=== PATIENT | male | born 1990 ===

== ENCOUNTER 2020-06-18 05:59 | Day surgery (SDC) | payer OTHER ==
[2020-06-18] MEDS ORDERED: Dextrose 5%-0.45% NaCl 1,000 ML IV SCH (06:00)
[2020-06-18] MEDS ORDERED: Midazolam 1 MG/ML 2 ML SDV IV ONE ×4 (06:00→07:03)
[2020-06-18] MEDS ORDERED: Midazolam 1 MG/ML 2 ML SDV ONE ×2 (06:20→06:37)
[2020-06-18] MEDS ORDERED: Benzocaine 20% Topical Spray UD ONE (06:21)
[2020-06-18] MEDS ORDERED: Benzocaine 20% Topical Spray UD MUCMEM ONE (06:58)
--- NOTE | 2020-06-18 07:47 | CN ---
SERVICE DATE: 06/18/2020 INTRODUCTION: This 29-year-old male has had a several-year history of gastroesophageal reflux symptoms, specifically heartburn and regurgitation. He was initially on 20 mg of omeprazole but upped that to 40 without much change. He is symptomatic daily. Does not seem to be related to whatever he eats. He does have regurgitation when he lies down flat. He has not had any prior workup to date. ALLERGIES: The patient has no allergies. CURRENT MEDICATIONS: Omeprazole. PRIOR SURGICAL HISTORY: None. FAMILY HISTORY AND SOCIAL HISTORY: The patient is . He does not smoke. REVIEW OF SYSTEMS: Only positive for reflux. Cardiovascular is negative. PHYSICAL EXAMINATION: HEENT: Normal. Chest: Lungs are clear bilaterally. Heart: Normal sinus rhythm without murmur. Abdomen: Soft and nontender. Extremities: Have no edema and have good range of motion. Neurologic: Intact. ASSESSMENT: Gastroesophageal reflux disease. PLAN: I discussed the risks, benefits, and expected outcomes of an esophagogastroduodenoscopy with this patient. Plan on doing this here at [facility] on 06/18. [facility] /[id number]
--- NOTE | 2020-06-18 07:56 | OR ---
DATE: 06/18/2020 PREOPERATIVE DIAGNOSIS: Gastroesophageal reflux disease. POSTOPERATIVE DIAGNOSIS: Gastroesophageal reflux disease. PROCEDURE: Esophagogastroduodenoscopy. ANESTHESIA: Conscious sedation with IV Versed. SPECIMEN: None. OPERATIVE FINDINGS: Moderately large hiatal hernia with eversion of the stomach into the hiatal hernia sac with retching. INDICATION FOR PROCEDURE: This 29-year-old male has moderate gastroesophageal reflux symptoms. His increase in omeprazole to 40 mg a day does not seem to help his heartburn. Besides heartburn, he has also regurgitation of solid food. RECOMMENDATION: I think this person would be an ideal candidate for laparoscopic Aman fundoplication. He has a moderate size hiatal hernia which really is the cause of his reflux and his symptoms are not controlled on medication. PROCEDURE IN DETAIL: After adequate preparation, a gastroscope was inserted into the esophagus. This was passed down to the distal esophagus. He shows a moderate size hiatal hernia with eversion of the stomach into the lower esophagus when he retches with the scope in. I did not see significant distal esophagitis, however. The scope was advanced into the stomach. Both forward and retroflexed views were done and were normal. The retroflexed view confirmed a large hiatal hernia. The scope was advanced through the pylorus and the first and second part of the duodenum were normal. Air was suctioned from the stomach and the scope removed. [facility] /[id number]
== END 2020-06-18 09:15 | disposition home or self-care (01) ==
LOC: DL.ENDO 05:59
PROVIDERS: ATTEND Surgery
DX: K21.9 Gastro-esophageal reflux disease without esophagitis (principal); K44.9 Diaphragmatic hernia without obstruction or gangrene; Z01.812 Encounter for preprocedural laboratory examination; Z20.822 Contact with and (suspected) exposure to COVID-19
CPT/HCPCS: 43235; 87635; A9270; J2250; J7042; U0002

== ENCOUNTER 2020-06-25 18:27 | Emergency (ER) | payer OTHER, BC ==
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
== END 2020-06-25 19:37 | disposition home or self-care (01) ==
LOC: DL.ED 18:27
DX: S09.92XA Unspecified injury of nose, initial encounter (principal); Y04.0XXA Assault by unarmed brawl or fight, initial encounter
CPT/HCPCS: 70160; 99284

== ENCOUNTER 2020-08-13 08:00 | Day surgery (SDC) | payer OTHER, BC ==
[2020-08-13] MEDS ORDERED: Succinylcholine 200 MG/10 ML MDV IV ONE (08:01)
[2020-08-13] MEDS ORDERED: Glycopyrrolate 0.2 MG/ML 2 ML SDV IV ONE (08:01)
[2020-08-13] MEDS ORDERED: Midazolam 1 MG/ML 2 ML SDV IV ONE (08:01)
[2020-08-13] MEDS ORDERED: Neostigmine Methylsulfate 10 MG/10 ML MDV IV ONE (08:01)
[2020-08-13] MEDS ORDERED: Rocuronium 100 MG/10 ML MDV IV ONE (08:01)
[2020-08-13] MEDS ORDERED: Lidocaine 1% with EPINEPHrine 1:100,000 20 ML MDV ONE ×2 (08:01→09:42)
[2020-08-13] MEDS ORDERED: Ondansetron 4 MG/2 ML SDV IV ONE (08:01)
[2020-08-13] MEDS ORDERED: Propofol 200 MG/20 ML SDV IV ONE (08:01)
[2020-08-13] MEDS ORDERED: fentaNYL 100 MCG/2 ML SDV IV ONE (08:01)
[2020-08-13] MEDS ORDERED: Dexamethasone 4 MG/ML SDV IV ONE (08:01)
[2020-08-13] MEDS ORDERED: Lactated Ringers 1,000 ML IV ONE (08:01)
[2020-08-13] MEDS ORDERED: Lactated Ringers 1,000 ML IV SCH (09:00)
--- NOTE | 2020-08-13 09:32 | CR ---
PROCEDURE INFORMATION: Exam: XR Chest Exam date and time: 08/13/2020 9:23 AM Age: 29 years old Clinical indication: Other: Preop- HX covid TECHNIQUE: Imaging protocol: XR of the chest Views: 1 view. COMPARISON: No relevant prior studies available. FINDINGS: Lungs: Unremarkable. No consolidation. Pleural spaces: Unremarkable. No pleural effusion. No pneumothorax. Heart/Mediastinum: Unremarkable. No cardiomegaly. Bones/joints: Unremarkable. IMPRESSION: No evidence for acute pulmonary disease.
[2020-08-13] MEDS ORDERED: Lidocaine 1% with EPINEPHrine 1:100,000 30 ML MDV INJECT ONE (11:32)
--- NOTE | 2020-08-13 15:23 | OR ---
DATE: 08/13/2020 PREOPERATIVE DIAGNOSES: Gastroesophageal reflux disease and hiatal hernia. POSTOPERATIVE DIAGNOSES: Gastroesophageal reflux disease and hiatal hernia. PROCEDURE: Laparoscopic Aman fundoplication ANESTHESIA: General. ESTIMATED BLOOD LOSS: Minimum. SPECIMEN: None. INDICATION FOR PROCEDURE: This 29-year-old male has significant reflux symptoms, most likely due to a moderate sized hiatal hernia. Medications have not helped his reflux, heartburn. OPERATIVE FINDINGS: Moderate size hiatal hernia, otherwise normal. PROCEDURE IN DETAIL: After adequate preparation, a left upper quadrant incision was made and a Veress needle placed intra-abdominally for insufflation. This was then exchanged for a 5 mm trocar and laparoscope. The right upper quadrant lateral incision was made and a paddle was placed within the abdomen. The left lobe of the liver was elevated to expose the stomach and the hiatal hernia. Three other trocars were placed under direct vision. The lesser omentum was incised using a Harmonic Scalpel device. This was taken up to the base of the right crura. The peritoneum over the crura was incised and taken up over anteriorly over the esophagus down along the left crura to completely mobilize the esophagus. Along the lesser curvature of the stomach, the omentum was elevated, and using the Harmonic device, the omentum was taken off the upper greater curvature and fundus of the stomach to completely free this up. The fundus of the stomach was then brought behind the esophagus, and using a 44 bougie dilator, a 360-degree wraparound the dilator was made in a loose fashion. Two permanent sutures were used to hold the wrap in place. The wrap was then elevated to the left side and 2 sutures were used to close the base of the crura. This adequately left enough marginal room for a bolus of food to pass through, but was snug enough to prevent hiatal hernia. No other intraabdominal abnormalities were noted. The trocars were removed. The abdomen desufflated and the skin closed with 4-0 Monocryl. [facility] /[id number]
[2020-08-13] MEDS ORDERED: Morphine 2 MG/ML SYRINGE IVPUSH PRN (16:01)
[2020-08-13] MEDS ORDERED: Sodium Chloride 0.9% 10 ML Syringe FLUSH PRN (16:05)
[2020-08-13] MEDS: Acetaminophen/oxyCODONE 325-5 MG Tab PO PRN (20:47)
[2020-08-14] MEDS: Acetaminophen/oxyCODONE 325-5 MG Tab PO PRN ×2 (04:40→12:38)
[2020-08-14] MEDS ORDERED: Barium Sulfate 60% w/v Susp 355 ML Bottle PO ONE (09:09)
--- NOTE | 2020-08-14 16:41 | CR ---
EXAMINATION: Esophagus...2 barium swalllows. SEX: Male AGE: 29 years CLINICAL HISTORY: 29-year-old hospitalized postop male (recent Aman esophageal procedure) who just started water by mouth and cream of wheat breakfast. Interpretation: Satisfactory barium swallow initiated. Normal esophageal peristalsis and anatomy. Smooth Aman "wrap" distal esophagus. Expected postoperative esophagogastric transition and appearance of the distal esophagus. No hiatus hernia. No abnormal barium "hang up" at the GE junction. No barium aspiration. No extra esophageal (mediastinal) barium.
--- NOTE | 2020-08-16 11:36 | PCM.SN.2 ---
- Free Text/Narrative Note: Stable POD #1. Was febrile to 101 last night but afebrile now. No pain. Wounds clean and dry. PO full liquid tolerated well. Percocet #20 given for home pain control. Awaiting esophagogram study later this AM. FU my clinic week of September 22 if needed. Return to work after August 26. Mostly full liquid diet for next 7-10 days.
== END 2020-08-14 13:15 | disposition home or self-care (01) ==
LOC: DL.SDS 08:00 → EDSTATUS 09:00 → DL.MS 15:55 → DL.SDS 08-14 14:15
PROVIDERS: ATTEND Surgery
DX: K21.9 Gastro-esophageal reflux disease without esophagitis (principal); K44.9 Diaphragmatic hernia without obstruction or gangrene; U07.1 COVID-19; Z79.899 Other long term (current) drug therapy
CPT/HCPCS: 00790; 43280; 71045; 74220; 87635; A9270; J0330; J1100; J2250; J2405; J2704; J2710; J3010; J3490; J7120; U0002